=== PATIENT | male | born 1940 | race Caucasian/White ===

== ENCOUNTER → 2016-06-24 | Outpatient (CLI) | payer OTHER ==
[~2016-06-24] MED LIST: ANTIVERT12.5 MG PO; ASPIRIN PO; ASPIRIN81 M2 PO; BACTRIM DS TABL1 TA1 PO; CERTAGEN PO; HYDROCHLOROTH12.5 M1 PO; HYDROCODON-ACE1 EAC7 PO; LANOXIN PO; TOPROL XL 50 MG50 MG PO; ULTRAM PO; [UNRECOGNIZED DRUG - OTHER]; [UNRECOGNIZED DRUG - OTHER] PO
--- NOTE | ~2016-06-24 | US6 ---
[facility] A Service of [facility] RADIOLOGY TEXT RESULTS PATIENT: SUKHDEEP DANIELS LOCATION: US : 40 UNIT #: [id number] AGE: [address]: Chacorta Garcia MD SEX: M ORDER DR: [id number] [facility] [address] [place], [place] [address] [id number] O MR#: [id number] #: [id number] NAME: SUKHDEEP DANIELS : 1940 SEX: M STUDY DATE/TIME: 06/24/2016 9:59 UNIT: [facility] ROOM: STUDY DESCRIPTION: US Abdominal Limited Attending Physician: Chacorta Garcia M.D. Referring Physician: Chacorta Garcia M.D. Ordering Physician: Chacorta Garcia M.D. Primary Care Physician: Primary Care Physician No MEDICAL IMAGING REPORT This report is preliminary unless electronic signature is present EXAM Right upper quadrant abdominal ultrasound INDICATIONS Cholelithiasis. Possible gallstones. Observation for cholelithiasis. PROCEDURE Geronimo-scale and Doppler imaging right upper quadrant of the abdomen. COMPARISON: None FINDINGS Visualized portions of pancreas are unremarkable but the majority is obscured by bowel gas. Liver measures 12.8 cm. There is a 2.2 cm cyst in the liver. There is a second cyst in the liver measuring 2.6 cm. Right kidney measures 12.2 cm. No hydronephrosis. 1.9 cm cyst in the right kidney. There are multiple stones in the gallbladder. No wall thickening or pericholecystic fluid. Common duct measures 4 mm. IMPRESSION 1. Uncomplicated cholelithiasis. 2. Hepatic and right renal cysts. Dictated by... Dariusz Moralez M.D. THIS IS AN ELECTRONICALLY VERIFIED REPORT Dariusz Moralez M.D. at 06/24/2016 4:52 PM GEORGIE/rosario TD: 06/24/2016 13:58 [facility] A Service of [facility] RADIOLOGY TEXT RESULTS PATIENT: SUKHDEEP DANIELS LOCATION: [facility] ACC #: [id number] : 40 UNIT #: [id number] AGE: [address]: Chacorta Garcia MD SEX: M ORDER DR: JOB #: [id number] MEDICAL IMAGING REPORT COPY
== END | disposition home or self-care (01) ==
LOC: CCAT 09:00
DX: K80.20 Calculus of gallbladder without cholecystitis without obstruction (principal); N28.1 Cyst of kidney, acquired; K76.89 Other specified diseases of liver
CPT/HCPCS: 76705